=== PATIENT | female | born 2000 | race Caucasian/White ===

== ENCOUNTER 2018-07-26 03:40 | Emergency (ER) | payer OTHER ==
[2018-07-26] MEDS ORDERED: Acetaminophen 500 MG TAB ONE (04:04)
[2018-07-26 04:07] LABS: Clarity Cloudy (Clear)
[2018-07-26 04:08] LABS: Bilirubin Negative (Negative); Blood, Urine Negative (Negative); Glucose, Urine (Dipstick) Negative (Negative); Leukocyte Small (Negative); Nitrite Negative (Negative); Protein, Urine (Dipstick) 30 mg/dL (Neg-Trace); Specific Gravity, Urine 1.015 (1.005-1.030); Urobilinogen 0.2 mg/dL (0.2-1.0); pH, Urine 6.5 (5.0-9.0)
[2018-07-26 04:12] LABS: Bacteria/HPF 2+ HPF (None Seen); RBC/HPF 0-3 HPF (0-3)
[2018-07-26] MEDS ORDERED: Nitrofurantoin Monohyd/M-Cryst 100 MG CAP ONE (04:20)
== END 2018-07-26 04:26 | disposition home or self-care (01) ==
LOC: BURERS 03:40
DX: O99.89 Other specified diseases and conditions complicating pregnancy, childbirth and the puerperium (principal); M54.5 Low back pain; O23.42 Unspecified infection of urinary tract in pregnancy, second trimester
CPT/HCPCS: 81003; 81015; 87086; 99283

== ENCOUNTER 2018-08-01 13:37 | Emergency (ER) | payer BC, OTHER | END 2018-08-01 14:04 | disposition home or self-care (01) | LOC: BURERS 13:37 | DX: Z34.93 Encounter for supervision of normal pregnancy, unspecified, third trimester (principal); Z3A.31 31 weeks gestation of pregnancy | CPT/HCPCS: 99283 ==

== ENCOUNTER 2019-02-20 20:36 | Emergency (ER) | payer BC, OTHER | END 2019-02-20 21:00 | disposition home or self-care (01) | LOC: BURERS 20:36 | DX: H66.93 Otitis media, unspecified, bilateral (principal) | CPT/HCPCS: 99282 ==

== ENCOUNTER 2019-11-10 16:28 | Emergency (ER) | payer BC, OTHER | END 2019-11-10 16:50 | disposition home or self-care (01) | LOC: BURERS 16:28 | DX: O9A.213 Injury, poisoning and certain other consequences of external causes complicating pregnancy, third trimester (principal); S80.812A Abrasion, left lower leg, initial encounter; O24.419 Gestational diabetes mellitus in pregnancy, unspecified control; Z3A.32 32 weeks gestation of pregnancy; W18.30XA Fall on same level, unspecified, initial encounter | CPT/HCPCS: 99281 ==

== ENCOUNTER 2020-11-27 22:31 | Emergency (ER) | payer BC, OTHER ==
[2020-11-27] MEDS ORDERED: Cyclobenzaprine 10 MG TAB ONE (22:54)
[2020-11-27] MEDS ORDERED: Ibuprofen 800 MG TAB ONE (22:54)
[2020-11-27 23:10] LABS: Bilirubin Negative (Negative); Blood, Urine Moderate (Negative); Clarity Cloudy (Clear); Glucose, Urine (Dipstick) 250 mg/dL (Negative); Ketone, Urine Negative (Negative); Leukocyte Negative (Negative); Nitrite Positive (Negative); Protein, Urine (Dipstick) > or equal to 300 mg/dL (Neg-Trace); Urobilinogen 0.2 mg/dL (Less than 2)
[2020-11-27 23:12] LABS: Specific Gravity, Urine 1.025 (1.002-1.036)
[2020-11-27 23:12] LABS: Pregnancy Test - Urine (BHCG) Negative (Negative); Pregu Control Background? CLEAR/WHITE (CLR/WHITE); Pregu Control Bar Appear? YES (CONTROL BAR); Specific Gravity 1.025 (1.002-1.036)
[2020-11-27 23:15] LABS: Bacteria/HPF 1+ HPF (None Seen); RBC/HPF 0-3 HPF (0-3); WBC/HPF 0-3 HPF (0-3)
== END 2020-11-27 23:33 | disposition home or self-care (01) ==
LOC: BURERS 22:31
DX: M54.5 Low back pain (principal); E66.9 Obesity, unspecified
CPT/HCPCS: 81003; 81015; 81025; 99283

== ENCOUNTER 2020-12-03 10:57 | Outpatient (CLI) | payer OTHER | END 2020-12-03 10:58 | disposition home or self-care (01) | LOC: BURRAD 10:57 | PROVIDERS: ATTEND Registered Nurse Community Health | DX: M54.9 Dorsalgia, unspecified (principal) | CPT/HCPCS: 72070 ==

== ENCOUNTER 2021-02-26 16:51 | Emergency (ER) | payer BC, OTHER ==
[2021-02-26] MEDS ORDERED: Ibuprofen 800 MG TAB ONE (17:40)
== END 2021-02-26 17:42 | disposition home or self-care (01) ==
LOC: BURERS 16:51
DX: G44.209 Tension-type headache, unspecified, not intractable (principal); E66.9 Obesity, unspecified; Z68.42 Body mass index [BMI] 45.0-49.9, adult
CPT/HCPCS: 99283

== ENCOUNTER 2021-06-16 11:11 | Emergency (ER) | payer BC, OTHER ==
[2021-06-16] MEDS ORDERED: Acetaminophen 500 MG TAB ONE (12:55)
[2021-06-16 21:33] LABS: SARS-CoV-2 PCR by NAA DETECTED (NotDetected)
== END 2021-06-16 13:35 | disposition home or self-care (01) ==
LOC: BURERS 11:11
DX: U07.1 COVID-19 (principal)
CPT/HCPCS: 87804; 99283; U0003; U0005

== ENCOUNTER 2021-10-12 10:08 | Emergency (ER) | payer OTHER | END 2021-10-12 10:48 | disposition home or self-care (01) | LOC: BURERS 10:08 | DX: J02.9 Acute pharyngitis, unspecified (principal); E66.9 Obesity, unspecified | CPT/HCPCS: 99281 ==

== ENCOUNTER 2022-04-01 13:46 | Emergency (ER) | payer BC, OTHER | END 2022-04-01 14:18 | disposition home or self-care (01) | LOC: BURERS 13:46 | DX: B34.9 Viral infection, unspecified (principal); F17.290 Nicotine dependence, other tobacco product, uncomplicated | CPT/HCPCS: 99283 ==

== ENCOUNTER 2022-05-02 20:39 | Emergency (ER) | payer BC, OTHER ==
[2022-05-02 22:04] LABS: Bilirubin Negative (Negative); Blood, Urine Moderate (Negative); Clarity Cloudy (Clear); Glucose, Urine (Dipstick) Negative (Negative); Ketone, Urine Negative (Negative); Leukocyte Trace (Negative); Nitrite Positive (Negative); Protein, Urine (Dipstick) 100 mg/dL (Neg-Trace); Urobilinogen 0.2 mg/dL (Less than 2); pH, Urine 6.5 (5.0-9.0)
[2022-05-02 22:06] LABS: Pregnancy Test - Urine (BHCG) Negative (Negative); Pregu Control Background? CLEAR/WHITE (CLR/WHITE); Pregu Control Bar Appear? YES (CONTROL BAR)
[2022-05-02 22:11] LABS: Bacteria/HPF 3+ HPF (None Seen); Mucous/LPF 1+ LPF (<2+); Squamous Epithelial 0-3 HPF (0-3)
[2022-05-02] MEDS ORDERED: Cephalexin 250 MG CAP ONE (22:18)
== END 2022-05-02 22:23 | disposition home or self-care (01) ==
LOC: BURERS 20:39
DX: N39.0 Urinary tract infection, site not specified (principal); F17.290 Nicotine dependence, other tobacco product, uncomplicated
CPT/HCPCS: 81003; 81015; 81025; 99284

== ENCOUNTER 2022-05-13 20:41 | Emergency (ER) | payer BC, OTHER | END 2022-05-13 21:12 | disposition home or self-care (01) | LOC: BURERS 20:41 | DX: J11.1 Influenza due to unidentified influenza virus with other respiratory manifestations (principal) | CPT/HCPCS: 99283 ==

== ENCOUNTER 2022-05-23 18:03 | Emergency (ER) | payer BC, OTHER | END 2022-05-23 18:52 | disposition home or self-care (01) | LOC: BURERS 18:03 | DX: R32 Unspecified urinary incontinence (principal); R05.9 Cough, unspecified | CPT/HCPCS: 99283 ==

== ENCOUNTER 2022-06-28 17:31 | Emergency (ER) | payer BC, OTHER | END 2022-06-28 18:07 | disposition home or self-care (01) | LOC: BURERS 17:31 | DX: N93.9 Abnormal uterine and vaginal bleeding, unspecified (principal) | CPT/HCPCS: 99283 ==

== ENCOUNTER 2022-08-06 23:38 | Emergency (ER) | payer BC, OTHER ==
[2022-08-07] MEDS ORDERED: Ipratropium/Albuterol 3 ML NEB ONE (00:21)
[2022-08-07] MEDS ORDERED: predniSONE 20 MG TAB ONE (00:21)
== END 2022-08-07 00:41 | disposition home or self-care (01) ==
LOC: BURERS 23:38
DX: R05.9 Cough, unspecified (principal); R09.81 Nasal congestion
CPT/HCPCS: 71045; J7512; J7620

== ENCOUNTER 2022-09-02 11:39 | Emergency (ER) | payer BC, OTHER | END 2022-09-02 12:01 | disposition home or self-care (01) | LOC: BURERS 11:39 | DX: R07.89 Other chest pain (principal) | CPT/HCPCS: 99284 ==

== ENCOUNTER 2022-12-07 14:17 | Emergency (ER) | payer BC, OTHER | END 2022-12-07 14:38 | disposition home or self-care (01) | LOC: BURERS 14:17 | DX: L01.00 Impetigo, unspecified (principal) | CPT/HCPCS: 99282 ==

== ENCOUNTER 2023-01-14 09:18 | Emergency (ER) | payer OTHER | END 2023-01-14 09:42 | disposition home or self-care (01) | LOC: BURERS 09:18 | DX: J06.9 Acute upper respiratory infection, unspecified (principal) | CPT/HCPCS: 99283 ==

== ENCOUNTER 2023-12-21 13:18 | Emergency (ER) | payer BC, OTHER ==
[2023-12-21] MEDS ORDERED: Sodium Chloride 0.9% 100 ML ONE (14:11)
[2023-12-21] MEDS ORDERED: CEFAZOLIN 2 GM VIAL ONE (14:11)
[2023-12-21 14:26] LABS: Anisocytosis SLIGHT = 6-15 cells (100X) (0-5/hpf); Band 2 % (5-11); Eosinophils 2 % (0-10); Hematocrit 41.2 % (36.0-47.0); Hemoglobin 13.1 g/dL (12.0-16.0); Hypochromia SLIGHT = 6-15 cells (100X) (0-5/hpf); Lymphocytes 41 % (21-51); MDiff Complete? YES; Mean Corpuscular HGB CONC 31.7 g/dL (32.0-36.0); Mean Corpuscular Hemoglobin 24.8 pg (27.0-31.0); Mean Corpuscular Volume 78.2 fl (78.0-98.0); Mean Platelet Volume 6.9 fL (7.4-10.4); Microcytosis SLIGHT = 6-15 cells (100X) (0-5/hpf); Monocytes 2 % (0-10); Neutrophil 53 % (42-75); Ovalocytes SLIGHT = 2-5 cells (100X) (0-1/hpf); Platelet Count 453 10x3/uL (130-400); Poikilocytosis SLIGHT = 6-15 cells (100X) (0-5/hpf); RBC Distribution Width 13.4 % (11.5-14.5); Red Blood Cell (RBC) Count 5.27 mill/uL (4.20-5.40); White Blood Cell (WBC) Count 11.7 10x3/uL (4.8-10.8)
[2023-12-21 14:28] LABS: ALT (SGPT) 49 U/L (8-55); AST (SGOT) 27 U/L (5-34); Albumin 3.6 g/dL (3.5-5.0); Alkaline Phosphatase 91 U/L (40-110); Anion Gap 16 mmol/L (10-20); BHCG - Serum Negative (NEGATIVE); BUN (Urea Nitrogen) 12 mg/dL (7.0-18.7); Bilirubin, Total 0.3 mg/dL (0.2-1.2); Calc. Creatinine Clearance 0 mL/min (70-130); Calcium 9.5 mg/dL (7.8-10.44); Carbon Dioxide 23 mmol/L (22-29); Chloride 104 mmol/L (98-107); Estimated GFR 125; Globulin 3.9 g/dL (2.4-3.5); Glucose 131 mg/dL (70-105); Pregs Control Background? CLEAR/WHITE (CLR/WHITE); Pregs Control Bar Appear? YES (CONTROL BAR); Protein, Total 7.5 g/dL (6.0-8.3); Sodium 139 mmol/L (136-145)
== END 2023-12-21 15:32 | disposition home or self-care (01) ==
LOC: BURERS 13:18
DX: L03.116 Cellulitis of left lower limb (principal)
CPT/HCPCS: 36415; 80053; 83605; 84703; 85025; 96365

== ENCOUNTER 2024-07-15 09:33 | Emergency (ER) | payer OTHER ==
[2024-07-15 09:49] LABS: Bilirubin Small (Negative); Blood, Urine Large (Negative); Clarity Cloudy (Clear); Glucose, Urine (Dipstick) Negative (Negative); Ketone, Urine Trace mg/dL (Negative); Leukocyte Negative (Negative); Nitrite Negative (Negative); Protein, Urine (Dipstick) > or equal to 300 mg/dL (Neg-Trace); Specific Gravity, Urine 1.025 (1.005-1.030); pH, Urine 5.5 (5.0-9.0)
[2024-07-15 09:54] LABS: Pregnancy Test - Urine (BHCG) Negative (Negative)
[2024-07-15 09:55] LABS: Pregu Control Background? CLEAR/WHITE (CLR/WHITE); Pregu Control Bar Appear? YES (CONTROL BAR); Specific Gravity 1.025 (1.002-1.036)
[2024-07-15 09:58] LABS: Bacteria/HPF Rare-Few HPF (None Seen); CAUTI Indications for Culture Dysuria,urgency,freq; RBC/HPF Greater than 50 HPF (0-3); WBC/HPF None Seen HPF (0-3)
[2024-07-15 09:59] LABS: Urine Culture Reflex No No
== END 2024-07-15 10:10 | disposition home or self-care (01) ==
LOC: BURERS 09:33
DX: M54.50 Low back pain, unspecified (principal)
CPT/HCPCS: 81001; 81025; 99283